=== PATIENT | female | born 1995 | race Two or more races ===

== ENCOUNTER 2019-05-11 15:59 | Emergency (ER) | payer OTHER ==
[~2019-05-11] VITALS: Ht 165.1 cm; Wt 83.5 kg
[2019-05-11 16:27] VITALS: Ht 165.1 cm; Wt 83.5 kg
[2019-05-11 18:46] LABS: BASOPHIL % 0.6 % (0-2); RED CELL DISTRIBUTION WIDTH 13.2 % (11.5-14.5)
[2019-05-11 18:47] LABS: PLATELET COUNT 411 x10^3mcL (130-400)
[2019-05-11 19:12] LABS: CALCIUM 8.6 mg/dL (8.5-10.1); CARBON DIOXIDE 24.7 mmol/L (21-32); CHLORIDE SERUM 103 mmol/L (98-107); CREATININE SERUM 0.6 mg/dL (0.6-1.0); GFR1 > 60 mL/min; GLUCOSE SERUM 83 mg/dL (74-106); SODIUM SERUM 137 mmol/L (136-145)
[2019-05-11 19:26] LABS: ALBUMIN 3.5 g/dL (3.4-5.0); ALKALINE PHOSPHATASE 53 U/L (46-116); ALT/SGPT 16 U/L (14-59); AST/SGOT 15 U/L (15-37); BILIRUBIN TOTAL 0.6 mg/dL (0.20-1.00); FREE T4 0.91 ng/dL (0.76-1.46); TOTAL PROTEIN, SERUM 7.9 g/dL (6.4-8.2)
[2019-05-11 21:12] VITALS: BP 117/75
== END 2019-05-11 21:12 | disposition home or self-care (01) ==
LOC: ED 15:59
PROVIDERS: Student in an Organized Health Care Education/Training Program
DX: L03.115 Cellulitis of right lower limb (principal); R55 Syncope and collapse
CPT/HCPCS: 36415; 84439; 85378; Q0092